=== PATIENT | male | born 1955 | race Caucasian/White ===

== ENCOUNTER 2017-08-01 07:30 | Outpatient (CLI) | payer BC ==
[2017-08-01 08:24] LABS: Anion Gap 17 mmol/L (10-20); BUN (Urea Nitrogen) 19 mg/dL (8.4-25.7); Calc. Creatinine Clearance 0 mL/min (70-130); Calcium 9.4 mg/dL (7.8-10.44); Carbon Dioxide 26 mmol/L (22-29); Chloride 105 mmol/L (98-107); Estimated GFR-MDRD 81
[2017-08-01] MEDS ORDERED: Iopamidol 370 76% 100 ML VIAL ONE (09:00)
--- NOTE | 2017-08-01 10:49 | CT ---
CT ABDOMEN WITH AND WITHOUT IV CONTRAST CT PELVIS WITH AND WITHOUT IV CONTRAST: DATE: 08/01/17. HISTORY: Elevated PSA, microhematuria. History of kidney stones and enlarged and enlarged prostate gland. COMPARISON: Noncontrasted CT abdomen and pelvis on 05/07/17. FINDINGS: Hypodense bilateral renal lesions are again seen most compatible with cysts. There are a few tiny to o small to characterize hypodense lesions seen in the superior pole of each kidney. No enhancing raghav al mass is seen. No renal or ureteral calculus is identified bilaterally, and there is no hydronephr osis. The prostate gland is enlarged and measures 7.4 cm in transverse dimensions. This does result in mil d mass effect on the posterior inferior aspect of the urinary bladder. The urinary bladder otherwise has a normal CT appearance. The lung bases, liver, spleen, pancreas, and bilateral adrenal glands demonstrate a normal CT appeara nce. Vascular calcifications are seen in the abdominal aorta and iliac arteries. There is no free fluid, fluid collection, or lymphadenopathy seen in the abdomen or pelvis. IMPRESSION: 1. Bilateral renal cysts with subcentimeter too small to characterize hypodense lesions in each kidn ey. No enhancing renal mass is seen. 2. No renal or ureteral calculi are seen bilaterally. 3. Enlargement of the prostate gland. 4. Previously seen left ureterovesical junction calculus is no longer visualized and previously note d left hydronephrosis has resolved. POS: [facility]
== END 2017-08-01 07:31 | disposition home or self-care (01) ==
LOC: SCSCT 07:30
PROVIDERS: ATTEND Urology
DX: N40.1 Benign prostatic hyperplasia with lower urinary tract symptoms (principal); R31.29 Other microscopic hematuria; R97.20 Elevated prostate specific antigen [PSA]; N28.1 Cyst of kidney, acquired
CPT/HCPCS: 74178; 80048; 88112

== ENCOUNTER 2019-03-07 18:06 | Emergency (ER) | payer BC ==
[2019-03-07] MEDS ORDERED: Ketorolac Tromethamine 30 MG/ML VIAL ONE (18:39)
[2019-03-07 19:10] LABS: #Basophils 0.1 thou/uL (0.0-0.2); #Lymphocytes 1.3 thou/uL (1.20-3.40); #Neutrophils 11.1 thou/uL (1.40-6.50); %Basophils 0.6 % (0.0-1.0); %Eosinophils 0.2 % (0.0-10.0); %Lymphocytes 9.5 % (21.0-51.0); %Monocytes 7.4 % (0.0-10.0); %Neutrophils 82.4 % (42.0-75.0); Hemoglobin 15.4 g/dL (14.0-18.0); Mean Corpuscular HGB CONC 33.8 g/dL (32.0-36.0); Mean Corpuscular Volume 88.5 fL (78.0-98.0); Platelet Count 189 thou/uL (130-400); RBC Distribution Width 13.1 % (11.5-14.5); Red Blood Cell (RBC) Count 5.14 mill/uL (4.70-6.10); White Blood Cell (WBC) Count 13.5 thou/uL (4.8-10.8)
--- NOTE | 2019-03-07 19:27 | CT ---
CT Stone Protocol: 03/07/2019 6:45 PM HISTORY: Right upper quadrant abdominal pain for 3 days COMPARISON: 08/01/2017 TECHNIQUE: Multiple contiguous axial images were obtained and a CT of the abdomen and pelvis without IV contrast . Coronal reformats were performed. FINDINGS: This examination is limited for the evaluation of solid organs and vascular structures due to the lac k of intravenous contrast. Lower Chest: within normal limits. Abdomen: Liver: within normal limits. Bile Ducts: Normal caliber. Gallbladder: No calcified gallstones. Normal caliber wall. Pancreas: within normal limits. Spleen: within normal limits. Adrenals: within normal limits. Kidneys: Mild right hydronephrosis with stranding change surrounding the proximal ureter and kidney. 2.6 cm right renal cyst. Pelvis: Reproductive Organs: No pelvic masses. Ureters: 1 mm right ureterovesical junction calcification causes mild right hydroureter Bladder: within normal limits. Bowel: Normal caliber. Normal appendix. Mesenteric Lymph Nodes: No enlarged mesenteric lymph nodes. Peritoneum: No ascites or free air, no fluid collection. Vessels: Atherosclerotic calcifications in the aorta Retroperitoneum: within normal limits. Abdominal Wall: within normal limits. Bones: Degenerative changes in the spine. IMPRESSION: 1. Small right distal ureteral calcification with right-sided hydronephrosis 2. Right renal cyst
== END 2019-03-07 19:57 | disposition home or self-care (01) ==
LOC: SCSER 18:06
DX: N13.2 Hydronephrosis with renal and ureteral calculous obstruction (principal); R73.03 Prediabetes; E78.5 Hyperlipidemia, unspecified; F17.210 Nicotine dependence, cigarettes, uncomplicated; Z79.899 Other long term (current) drug therapy; Z79.82 Long term (current) use of aspirin
CPT/HCPCS: 36415; 74176; 80053; 80061; 81015; 83036; 83690; 85025; 87086; 96361; 96374; J1885

== ENCOUNTER 2021-03-10 10:59 | Outpatient (CLI) | payer BC | END 2021-03-10 11:00 | disposition home or self-care (01) | LOC: PET 10:59 | PROVIDERS: ATTEND Internal Medicine Hematology & Oncology | DX: R59.0 Localized enlarged lymph nodes (principal) | CPT/HCPCS: 78815; A9552 ==

== ENCOUNTER 2021-12-11 10:15 | Outpatient (CLI) | payer BC | END 2021-12-11 10:16 | disposition home or self-care (01) | LOC: PET 10:15 | PROVIDERS: ATTEND Internal Medicine Hematology & Oncology | DX: C82.11 Follicular lymphoma grade II, lymph nodes of head, face, and neck (principal); R59.0 Localized enlarged lymph nodes; F17.210 Nicotine dependence, cigarettes, uncomplicated; D50.0 Iron deficiency anemia secondary to blood loss (chronic); D63.8 Anemia in other chronic diseases classified elsewhere | CPT/HCPCS: 78815; A9552 ==

== ENCOUNTER 2022-03-12 08:00 | Outpatient (CLI) | payer BC | END 2022-03-12 08:01 | disposition home or self-care (01) | LOC: PET 08:00 | PROVIDERS: ATTEND Internal Medicine Hematology & Oncology | DX: C82.11 Follicular lymphoma grade II, lymph nodes of head, face, and neck (principal) | CPT/HCPCS: 78815; A9552 ==

== ENCOUNTER 2022-06-11 08:45 | Outpatient (CLI) | payer BC | END 2022-06-11 08:46 | disposition home or self-care (01) | LOC: PET 08:45 | PROVIDERS: ATTEND Internal Medicine Hematology & Oncology | DX: C82.10 Follicular lymphoma grade II, unspecified site (principal); R59.0 Localized enlarged lymph nodes; D50.0 Iron deficiency anemia secondary to blood loss (chronic); D63.0 Anemia in neoplastic disease; F17.210 Nicotine dependence, cigarettes, uncomplicated | CPT/HCPCS: 78815; A9552 ==

== ENCOUNTER 2023-09-06 08:00 | Outpatient (CLI) | payer BC | END 2023-09-06 08:01 | disposition home or self-care (01) | LOC: PET 08:00 | PROVIDERS: ATTEND Internal Medicine Hematology & Oncology | DX: C82.11 Follicular lymphoma grade II, lymph nodes of head, face, and neck (principal); R59.0 Localized enlarged lymph nodes | CPT/HCPCS: 78815; A9552 ==